=== PATIENT | female | born 1995 | race Caucasian/White ===

== ENCOUNTER → 2017-01-11 | Outpatient (CLI) | payer MEDICAID, OTHER | LOC: MW.CHFP 10:25 | PROVIDERS: ATTEND Emergency Medicine | DX: R39.9 Unspecified symptoms and signs involving the genitourinary system (principal) | CPT/HCPCS: 81001 ==

== ENCOUNTER 2023-06-15 10:21 | Inpatient (IN) | payer BC ==
[2023-06-15] MEDS ORDERED: Ondansetron 4 MG/2 ML SDV IVPUSH PRN (10:33)
[2023-06-15] MEDS ORDERED: Water For Irrigation,Sterile 1,000 ML Container IRR PRN (10:33)
[2023-06-15] MEDS ORDERED: Misoprostol 200 MCG Tab PO PRN (10:33)
[2023-06-15] MEDS ORDERED: Methylergonovine 0.2 MG/1 ML Amp IM PRN (10:33)
[2023-06-15] MEDS ORDERED: Sodium Chloride 0.9% 10 ML Syringe FLUSH PRN (10:33)
[2023-06-15] MEDS ORDERED: Sodium Chloride 0.9% 20 ML SDV IV PRN (10:33)
[2023-06-15] MEDS ORDERED: Carboprost Tromethamine 250 MCG/1 mL Vial IM PRN (10:33)
[2023-06-15] MEDS ORDERED: Lidocaine 1% 50 ML MDV INJECT PRN (10:33)
[2023-06-15] MEDS ORDERED: Sodium Chloride 0.9% 2.5 ML Syringe FLUSH PRN (10:33)
[2023-06-15] MEDS ORDERED: Tranexamic Acid IN NACL,ISO-OS 1,000 MG in Premix Bag 1 BAG IV PRN ×2 (10:33)
[2023-06-15] MEDS ORDERED: Nalbuphine 10 MG/0.5 ML Syringe IVPUSH PRN (10:37)
[2023-06-15] MEDS ORDERED: Oxytocin/0.9 % Sodium Chloride 30 UNIT/500 ML BAG IV SCH ×2 (10:45→13:00)
[2023-06-15 12:13] LABS: HEMATOCRIT 43.8 % (37.0-47.0); HEMOGLOBIN 15.2 g/dL (12.0-16.0); MEAN CORPUSCULAR HEMOGLOBIN 29.9 pg (28.0-32.0); MEAN CORPUSCULAR HGB CONC 34.7 g/dL (32.0-36.0); MEAN CORPUSCULAR VOLUME 86.2 fL (83.0-99.0); MEAN PLATELET VOLUME 10.1 fL (9.4-12.3); PLATELET COUNT,PLT 238 K/uL (150-400); RED BLOOD CELL COUNT 5.08 M/uL (4.10-5.30); WHITE BLOOD CELL COUNT,WBC 13.03 K/uL (3.9-11.3)
[2023-06-15] MEDS: Lactated Ringers 1,000 ML IV SCH ×2 (12:14→18:18)
[2023-06-15] MEDS ORDERED: Misoprostol 25 MCG (1/4 of 100 MCG) Tab VAG PRN ×2 (12:47)
[2023-06-15] MEDS ORDERED: Terbutaline 1 MG/ML SDV SUBCUT PRN (12:47)
[2023-06-15] MEDS ORDERED: Dexmedetomidine 200 MCG/2 ML SDV ONE (13:07)
[2023-06-15] MEDS ORDERED: Phenylephrine HCl 0.5 MG/5 ML AMP ONE (13:08)
[2023-06-15] MEDS ORDERED: Ropivacaine/PF 400 MG/200 ML PCA ONE (13:08)
[2023-06-15] MEDS ORDERED: ePHEDrine 50 MG/ML SDV IVPUSH PRN ×2 (13:17)
[2023-06-15] MEDS ORDERED: Phenylephrine HCl 0.5 MG/5 ML AMP IVPUSH PRN (13:17)
[2023-06-15] MEDS ORDERED: Bupivacaine 0.5% 10 ML SDV ONE (13:25)
[2023-06-15] MEDS ORDERED: Ketorolac 30 MG/ML SDV ONE (13:25)
[2023-06-15] MEDS ORDERED: Ropivacaine HCl/PF 400 MG in Premix Bag 1 BAG EPIDUR SCH (13:30)
[2023-06-15] MEDS ORDERED: Acetaminophen 1,000 MG in Premix Bag 1 BAG IV ONE (18:11)
[2023-06-15] MEDS ORDERED: Ampicillin/Sulbactam Na 3 GM in Sodium Chloride 0.9% 100 ML IV SCH (19:13)
[2023-06-16] MEDS ORDERED: Acetaminophen 500 MG Tab PO PRN ×3 (00:30→01:18)
[2023-06-16] MEDS ORDERED: oxyCODONE 5 MG Tab PO PRN ×2 (00:30→01:18)
[2023-06-16] MEDS ORDERED: Ibuprofen 400 MG Tab PO PRN ×2 (00:30→01:18)
[2023-06-16] MEDS ORDERED: Bisacodyl 10 MG Supp RECTAL PRN ×2 (00:30→01:18)
[2023-06-16] MEDS ORDERED: Benzocaine/Menthol 20%-0.5% Spray 78 GM Cannister TOP PRN ×2 (00:30→01:18)
[2023-06-16] MEDS ORDERED: Lanolin 100% Cream 7 GM Tube TOP PRN ×2 (00:30→01:18)
[2023-06-16] MEDS ORDERED: Ibuprofen 800 MG Tab PO PRN (01:18)
[2023-06-16] MEDS ORDERED: Witch Hazel Medicated Pads 40/Jar TOP PRN (01:18)
[2023-06-16] MEDS ORDERED: Docusate Sodium 100 MG Cap PO PRN (01:18)
[2023-06-16] MEDS: Ibuprofen 800 MG Tab PO PRN ×2 (03:35→16:57)
[2023-06-16] MEDS: Acetaminophen 500 MG Tab PO PRN ×2 (04:38→08:33)
[2023-06-16] MEDS: Witch Hazel Medicated Pads 40/Jar TOP PRN (04:41)
[2023-06-16] MEDS: Docusate Sodium 100 MG Cap PO PRN ×2 (08:32→20:43)
[2023-06-16 08:52] LABS: HEMATOCRIT 30.6 % (37.0-47.0); HEMOGLOBIN 10.5 g/dL (12.0-16.0)
[2023-06-16] MEDS ORDERED: Ampicillin/Sulbactam Na 3 GM in Sodium Chloride 0.9% 100 ML IV SCH (19:00)
[2023-06-17 06:17] LABS: HEMATOCRIT 29.7 % (37.0-47.0); HEMOGLOBIN 10.2 g/dL (12.0-16.0)
[2023-06-17] MEDS: Acetaminophen 500 MG Tab PO PRN (08:40)
[2023-06-17] MEDS: Ibuprofen 800 MG Tab PO PRN (08:42)
[2023-06-17] MEDS: Docusate Sodium 100 MG Cap PO PRN (08:57)
[2023-06-17] MEDS: Witch Hazel Medicated Pads 40/Jar TOP PRN (08:57)
== END 2023-06-17 12:42 | disposition home or self-care (01) | DRG 560 ==
LOC: MW.OBCHECK 10:21 → MW.OB 10:31 → MW.OBCHECK 11:20 → MW.OB 22:00 → OBSVTOIN 23:14 → MW.OB 06-16 05:04
PROVIDERS: ADMIT Obstetrics & Gynecology; ATTEND Obstetrics & Gynecology
PROC: 10E0XZZ Delivery of Products of Conception, External Approach (ICD-10-PCS; principal; 2023-06-15)
PROC: 3E033VJ Introduction of Other Hormone into Peripheral Vein, Percutaneous Approach (ICD-10-PCS; 2023-06-15)
PROC: 3E0R3BZ Introduction of Anesthetic Agent into Spinal Canal, Percutaneous Approach (ICD-10-PCS; 2023-06-15)
PROC: 00HU33Z Insertion of Infusion Device into Spinal Canal, Percutaneous Approach (ICD-10-PCS; 2023-06-15)
PROC: 0HQ9XZZ Repair Perineum Skin, External Approach (ICD-10-PCS; 2023-06-15)
PROC: 0UQMXZZ Repair Vulva, External Approach (ICD-10-PCS; 2023-06-15)
PROC: 0W8NXZZ Division of Female Perineum, External Approach (ICD-10-PCS; 2023-06-15)
DX: O70.0 First degree perineal laceration during delivery (principal); O77.0 Labor and delivery complicated by meconium in amniotic fluid; Z37.0 Single live birth; O66.0 Obstructed labor due to shoulder dystocia; Z3A.39 39 weeks gestation of pregnancy
CPT/HCPCS: 36415; 51702; 59025; 59409; 84112; 85014; 85018; 85027; 86592; 86850; 86900; 86901; A9270-GY; J0131; J0295; J1885; J2001; J2371; J2405; J2590; J2795; J3490; J7120

== ENCOUNTER 2025-05-31 15:18 | Inpatient (IN) | payer BC ==
[2025-05-31] MEDS ORDERED: Sodium Chloride 0.9% 2.5 ML Syringe FLUSH PRN (15:20)
[2025-05-31] MEDS ORDERED: Butorphanol 1 MG/ML SDV IVPUSH PRN (15:20)
[2025-05-31] MEDS ORDERED: Sodium Chloride 0.9% 10 ML Syringe FLUSH PRN (15:20)
[2025-05-31] MEDS ORDERED: Carboprost Tromethamine 250 MCG/1 mL Vial IM PRN (15:20)
[2025-05-31] MEDS ORDERED: Water For Irrigation,Sterile 1,000 ML Container IRR PRN (15:20)
[2025-05-31] MEDS ORDERED: Terbutaline 1 MG/ML SDV SUBCUT PRN (15:23)
[2025-05-31] MEDS ORDERED: Misoprostol 25 MCG (1/4 of 100 MCG) Tab VAG PRN (15:23)
[2025-05-31 16:19] LABS: MEAN PLATELET VOLUME 10.5 fL (9.4-12.3); NRBC ABSOLUTE 0.00 K/uL (0.00-0.02); NRBC PERCENT 0.0 /100WBC (0.0-0.2); PLATELET COUNT,PLT 224 K/uL (150-400); RED BLOOD CELL COUNT 4.87 M/uL (4.10-5.30); WHITE BLOOD CELL COUNT,WBC 7.50 K/uL (3.9-11.3)
[2025-05-31] MEDS: Lactated Ringers 1,000 ML IV SCH (16:44)
[2025-05-31] MEDS: Ondansetron 4 MG/2 ML SDV IVPUSH PRN (16:45)
[2025-05-31] MEDS: Oxytocin/0.9 % Sodium Chloride 30 UNIT/500 ML BAG IV SCH (16:54)
[2025-05-31] MEDS: Ropivacaine HCl/PF 200 ML ONE (18:41)
[2025-05-31] MEDS ORDERED: ePHEDrine 50 MG/ML SDV IVPUSH PRN (18:50)
[2025-05-31] MEDS: dexmedeTOMIDine HCl 200 MCG/2 ML SDV ONE (18:57)
[2025-05-31] MEDS ORDERED: Ropivacaine HCl/PF 400 MG in Premix Bag 1 BAG EPIDUR SCH (19:00)
[2025-05-31] MEDS ORDERED: dexmedeTOMIDine HCl 200 MCG/2 ML SDV EPIDUR SCH (19:00)
[2025-06-01] MEDS: Oxytocin/0.9 % Sodium Chloride 30 UNIT/500 ML BAG IV SCH (09:40)
[2025-06-01] MEDS ORDERED: Benzocaine/Menthol 20%-0.5% Spray 78 GM Cannister TOP PRN (10:04)
[2025-06-01] MEDS ORDERED: Witch Hazel Medicated Pads 40/Jar TOP PRN (10:04)
[2025-06-01 10:40] LABS: PH,UMBILICAL ARTERIAL 7.3 (7.18-7.38); PH,UMBILICAL VENOUS 7.4 (7.25-7.45)
[2025-06-02 06:24] LABS: BLOOD UREA NITROGEN,BUN 6.0 mg/dL (7.0-18.0); CARBON DIOXIDE,CO2 25.5 mmol/L (21.0-32.0); CHLORIDE,CL 108.0 mmol/L (98-107); CREATININE 0.5 mg/dL (0.6-1.0); EST CRCL DRUG DOSING (CG) 117.1 mL/min; GLUCOSE RANDOM 77.0 mg/dL (74-106); POTASSIUM,K 3.7 mmol/L (3.5-5.1); SODIUM,NA 141.0 mmol/L (136-145)
[2025-06-02 07:06] LABS: ESTIMATED GFR 129.0 mL/min (>60)
[2025-06-02] MEDS: Lanolin 100% Cream 7 GM Tube TOP PRN (17:50)
== END 2025-06-03 12:00 | disposition home or self-care (01) | DRG 560 ==
LOC: MW.OBCHECK 15:18 → OBSVTOIN 15:45 → MW.OB 15:45 → MW.MS 19:37 → MW.OB 19:43
PROVIDERS: ADMIT Obstetrics & Gynecology; ATTEND Obstetrics & Gynecology
PROC: 10E0XZZ Delivery of Products of Conception, External Approach (ICD-10-PCS; principal; 2025-05-31)
PROC: 3E0R3BZ Introduction of Anesthetic Agent into Spinal Canal, Percutaneous Approach (ICD-10-PCS; 2025-05-31)
PROC: 3E033VJ Introduction of Other Hormone into Peripheral Vein, Percutaneous Approach (ICD-10-PCS; 2025-05-31)
DX: O99.824 Streptococcus B carrier state complicating childbirth (principal); O24.420 Gestational diabetes mellitus in childbirth, diet controlled; O41.03X0 Oligohydramnios, third trimester, not applicable or unspecified; Z3A.38 38 weeks gestation of pregnancy; Z37.0 Single live birth; Z86.16 Personal history of COVID-19; Z79.899 Other long term (current) drug therapy
CPT/HCPCS: 01967; 36415; 51702; 59025; 59409; 80048; 82803; 82947; 85014; 85018; 85027; 86592; 86850; 86900; 86901; A9270-GY; J0290; J0665; J2371; J2405; J2590; J2795; J7120